=== PATIENT | female | born 1955 | race Caucasian/White ===

== ENCOUNTER 2020-06-17 16:20 | Emergency (ER) | payer MEDICAID, MEDICARE, OTHER ==
[~2020-06-17] VITALS: Ht 157.5 cm; Wt 63.1 kg
[2020-06-17] MEDS ORDERED: ACETAMINOPHEN 500 MG TABLET ONE (16:38)
[2020-06-17] MEDS ORDERED: ONDANSETRON ODT 4 MG ONE (16:38)
--- NOTE | 2020-06-17 16:41 | NUR ---
medicated per emar for fever of 103/nausea
[2020-06-17] MEDS ORDERED: ACETAMINOPHEN 500 MG TABLET PO ONE (17:00)
[2020-06-17] MEDS ORDERED: ONDANSETRON ODT 4 MG PO ONE (17:00)
[2020-06-17 17:27] LABS: BASOPHILS % (AUTO) 1 % (0-1); EOSINOPHILS % (AUTO) 0 % (1-7); LYMPHOCYTES % (AUTO) 6 % (22-44); MEAN CORPUSCULAR HEMOGLOBIN 30.3 pg (27.0-34.8); MEAN CORPUSCULAR HGB CONC 33.3 g/dL (32.4-35.8); MEAN PLATELET VOLUME 8.5 fL (7.4-10.4); MONOCYTES % (AUTO) 17 % (2-9); NEUTROPHILS % (AUTO) 76 % (42-75); PLATELET COUNT 233 x10^3/uL (130-400); RED BLOOD COUNT 4.89 x10^6/uL (3.82-5.3); RED CELL DISTRIBUTION WIDTH 14.5 % (9.6-15.2)
[2020-06-17 17:28] LABS: ALANINE AMINOTRANSFERASE 33 U/L (12-78); ALBUMIN 3.5 g/dL (3.4-5.0); ANION GAP 8 mmol/L (5-15); CALCIUM 8.7 mg/dL (8.5-10.1); CHLORIDE 102 mmol/L (98-107)
[2020-06-17 17:31] LABS: ALKALINE PHOSPHATASE 130 U/L (45-117); BILIRUBIN,TOTAL 0.6 mg/dL (0.2-1.0)
--- NOTE | 2020-06-17 17:50 | NUR ---
[employer] RE-ASSESSED/RE-VITALED PATIENT. TEMP/HR IMPROVED. HOWEVER PATIENT WOULD LIKE TO GO HOME. PROVIDER MADE AWARE-TO RE-ASSESS
[2020-06-17 18:07] LABS: MD SCAN
--- NOTE | 2020-06-17 18:35 | NUR ---
PT AMBULATORY TO ROOM 31 FROM LOBBY.
[2020-06-17 19:46] VITALS: BP 119/73
== END 2020-06-17 19:48 | disposition home or self-care (01) ==
LOC: ED 19:12
DX: U07.1 COVID-19 (principal); J18.9 Pneumonia, unspecified organism; R00.0 Tachycardia, unspecified
CPT/HCPCS: 36415; 71045; 80053; 85025; 87635; 99284; Q0162

== ENCOUNTER 2020-06-22 02:56 | Emergency (ER) | payer OTHER ==
[~2020-06-22] VITALS: Ht 167.6 cm; Wt 61.0 kg
[2020-06-22 03:06] VITALS: BP 109/53
[2020-06-22] MEDS ORDERED: DIPH,PERTUSS(ACELL),TET VAC/PF 0.5 ML IM-VACC ONE ×2 (03:30→04:57)
[2020-06-22 03:55] LABS: BASOPHILS % (AUTO) 0 % (0-1); EOSINOPHILS % (AUTO) 1 % (1-7); LYMPHOCYTES % (AUTO) 14 % (22-44); MEAN CORPUSCULAR HEMOGLOBIN 29.9 pg (27.0-34.8); MEAN CORPUSCULAR HGB CONC 33.2 g/dL (32.4-35.8); MEAN PLATELET VOLUME 8.7 fL (7.4-10.4); MONOCYTES % (AUTO) 14 % (2-9); NEUTROPHILS % (AUTO) 71 % (42-75); PLATELET COUNT 160 x10^3/uL (130-400); RED BLOOD COUNT 4.35 x10^6/uL (3.82-5.3); RED CELL DISTRIBUTION WIDTH 14.2 % (9.6-15.2)
[2020-06-22 03:58] LABS: MD NO
[2020-06-22 04:05] LABS: ALBUMIN 2.9 g/dL (3.4-5.0); ANION GAP 5 mmol/L (5-15); CALCIUM 8.6 mg/dL (8.5-10.1); CHLORIDE 105 mmol/L (98-107)
[2020-06-22 04:06] LABS: CREATININE 0.99 mg/dL (0.55-1.02)
--- NOTE | 2020-06-22 04:28 | NUR ---
xray at bedside.
--- NOTE | 2020-06-22 05:05 | NUR ---
PT ELOPED BEFORE TDAP COULD BE ADMINISTERED.
== END 2020-06-22 05:06 | disposition left against medical advice (07) ==
LOC: ED 03:26
DX: S50.871A Other superficial bite of right forearm, initial encounter (principal); L03.113 Cellulitis of right upper limb; W55.01XA Bitten by cat, initial encounter; Y93.89 Activity, other specified; Y92.89 Other specified places as the place of occurrence of the external cause; Y99.8 Other external cause status
CPT/HCPCS: 36415; 80048; 82040; 83605; 85025; 99284